=== PATIENT | female | born 1955 | race African-American/Black ===

== ENCOUNTER 2019-11-05 15:23 | Emergency (ER) | payer MEDICARE ==
[~2019-11-05] VITALS: Ht 175.3 cm; Wt 77.2 kg
[2019-11-05] MEDS ORDERED: KETOROLAC 15 MG/ML VIAL. IVP ONE (16:00)
[2019-11-05] MEDS ORDERED: hydrALAZINE 20 MG/ML VIAL. IVP ONE (16:00)
[2019-11-05] MEDS ORDERED: IV NORMAL SALINE 1000ML BAG 1,000 ML IV ONE (16:00)
[2019-11-05] MEDS ORDERED: cloNIDine HCL 0.1 MG TABLET PO ONE (16:00)
--- NOTE | 2019-11-05 16:00 | PHYS DOC ---
Past Medical History Past Medical History: Hypertension Past Surgical History Breast cancer Adult General Chief Complaint Chief Complaint: HEADACHE HPI HPI Patient is a 64 year old female who presents with complaint of a mild headache 1.5 weeks. Patient has history of hypertension but does not check her blood pressure regularly; she took her pressure today and it was 170s systolic. She denies chest pain or shortness of breath, numbness tingling or weakness. She takes a prescription of triamterene/hydrochlorothiazide. Has not seen her physician in 6 months. Review of Systems Review of Systems All other ROS is negative unless otherwise stated in HPI Current Medications Current Medications Current Medications Medications (Trade) Dose Ordered Sig/Gilda Start Time Stop Time Status Last Admin Dose Admin Clonidine HCl (Catapres) 0.1 mg 1X ONCE 11/05/19 16:00 11/05/19 16:01 DC 11/05/19 16:07 0.1 MG Hydralazine HCl (Apresoline Inj) 10 mg 1X ONCE 11/05/19 16:00 11/05/19 16:01 DC 11/05/19 16:07 10 MG Ketorolac Tromethamine (Toradol 15mg Vial) 15 mg 1X ONCE 11/05/19 16:00 11/05/19 16:01 DC Potassium Chloride (Klor-Con) 40 meq 1X ONCE 11/05/19 16:30 11/05/19 16:31 DC Sodium Chloride 1,000 ml @ 1,000 mls/hr 1X ONCE 11/05/19 16:00 11/05/19 16:59 11/05/19 16:08 1,000 MLS/HR Allergies Allergies Allergies Coded Allergies Type Severity Reaction Last Updated Verified iohexol Adverse Reaction Intermediate 11/05/19 Yes Physical Exam Physical Exam See above Constitutional: Well developed, well nourished, no acute distress, non-toxic appearance. [] HENT: Normocephalic, atraumatic, bilateral external ears normal, oropharynx moist, no oral exudates, nose normal. [] Eyes: PERRLA, EOMI, conjunctiva normal, no discharge. [] Neck: Normal range of motion, no tenderness, supple, no stridor. [] Cardiovascular:Heart rate regular rhythm, no murmur, no edema [] Lungs & Thorax: Bilateral breath sounds clear to auscultation [] Abdomen: Bowel sounds normal, soft, no tenderness, no masses, no pulsatile masses. [] Skin: Warm, dry, no erythema, no rash. [] Back: No tenderness, no CVA tenderness. [] Extremities: No tenderness, no cyanosis, no clubbing, ROM intact, no edema. [] Neurologic: Alert and oriented X 3, normal motor function, normal sensory function, no focal deficits noted. [] Psychologic: Affect normal, judgement normal, mood normal. [] Current Patient Data Vital Signs Vital Signs Date Time Temp Pulse Resp B/P (MAP) Pulse Ox O2 Delivery O2 Flow Rate FiO2 11/05/19 16:07 72 187/96 11/05/19 15:40 98.3 20 98 Room Air 98.3 Lab Values Laboratory Tests Test 11/05/19 15:50 White Blood Count 8.7 x10^3/uL (4.0-11.0) Red Blood Count 5.05 x10^6/uL (3.50-5.40) Hemoglobin 13.7 g/dL (12.0-15.5) Hematocrit 40.6 % (36.0-47.0) Mean Corpuscular Volume 80 fL (79-100) Mean Corpuscular Hemoglobin 27 pg (25-35) Mean Corpuscular Hemoglobin Concent 34 g/dL (31-37) Red Cell Distribution Width 13.4 % (11.5-14.5) Platelet Count 312 x10^3/uL (140-400) Neutrophils (%) (Auto) 63 % (31-73) Lymphocytes (%) (Auto) 28 % (24-48) Monocytes (%) (Auto) 7 % (0-9) Eosinophils (%) (Auto) 1 % (0-3) Basophils (%) (Auto) 1 % (0-3) Neutrophils # (Auto) 5.5 x10^3/uL (1.8-7.7) Lymphocytes # (Auto) 2.4 x10^3/uL (1.0-4.8) Monocytes # (Auto) 0.6 x10^3/uL (0.0-1.1) Eosinophils # (Auto) 0.1 x10^3/uL (0.0-0.7) Basophils # (Auto) 0.1 x10^3/uL (0.0-0.2) Sodium Level 143 mmol/L (136-145) Potassium Level 3.0 mmol/L (3.5-5.1) L Chloride Level 100 mmol/L (98-107) Carbon Dioxide Level 32 mmol/L (21-32) Anion Gap 11 (6-14) Blood Urea Nitrogen 15 mg/dL (7-20) Creatinine 1.0 mg/dL (0.6-1.0) Estimated GFR (Cockcroft-Gault) 67.3 Glucose Level 93 mg/dL (70-99) Calcium Level 10.5 mg/dL (8.5-10.1) H Troponin I Quantitative < 0.017 ng/mL (0.000-0.055) Laboratory Tests 11/05/19 15:50 Laboratory Tests 11/05/19 15:50 EKG EKG [] Radiology/Procedures Radiology/Procedures [] Impressions: Chest x-ray negative per emergency physician interpretation. Course & Med Decision Making Course & Med Decision Making 1557: Patient seen for ongoing headache temp 1.5 weeks with over the blood pressure in the ER. We'll check labs, give 1 L normal saline bolus and 10 mg of hydralazine IV and 0.1 mg of clonidine orally. If the patient's blood pressure improves and her labs are unremarkable and she is feeling better she will be discharged home and is to monitoring her blood pressure and will be instructed to follow-up next week with her primary care physician. She is also given Toradol for pain 1641: Patient's blood pressure is trending down, she is now 179/92. Her headache is gone. Her labs are unremarkable except for mild hypokalemia. She has been given 40 mEq of potassium orally in the ER. We'll wait on x-ray and if her blood pressure continues to attend down she will be discharged home and is instructed to monitor her blood pressure 3 times daily and follow-up next week. This was discussed with the patient and she voices understanding. Dragon Disclaimer Dragon Disclaimer This electronic medical record was generated, in whole or in part, using a voice recognition dictation system. Departure Departure Impression: Primary Impression: Hypokalemia Additional Impressions: Hypertension Headache Disposition: HOME, SELF-CARE Condition: IMPROVED Referrals: TATIANA HUNTER MD (PCP) Follow up in 3-7 days to recheck blood pressure Patient Instructions: Hypertension Additional Instructions: Check your blood pressure 3 times daily and keep a log for your doctor. Return for worsening symptoms. Problem Qualifiers JOVANY ROGERS DO Nov 05, 2019 16:00
[2019-11-05 16:01] LABS: BASO # 0.1 x10^3/uL (0.0-0.2); BASO % 1 % (0-3); EOS # 0.1 x10^3/uL (0.0-0.7); EOS % 1 % (0-3); HEMATOCRIT 40.6 % (36.0-47.0); HEMOGLOBIN 13.7 g/dL (12.0-15.5); LYMPH # 2.4 x10^3/uL (1.0-4.8); LYMPH % 28 % (24-48); MEAN CORPUSCULAR HEMOGLOBIN 27 pg (25-35); MEAN CORPUSCULAR HGB CONC 34 g/dL (31-37); MEAN CORPUSCULAR VOLUME 80 fL (79-100); MONO # 0.6 x10^3/uL (0.0-1.1); MONO % 7 % (0-9); NEUT # 5.5 x10^3/uL (1.8-7.7); NEUT % 63 % (31-73); PLATELET COUNT 312 x10^3/uL (140-400); RED BLOOD COUNT 5.05 x10^6/uL (3.50-5.40); RED CELL DISTRIBUTION WIDTH 13.4 % (11.5-14.5); WHITE BLOOD COUNT 8.7 x10^3/uL (4.0-11.0)
[2019-11-05 16:07] LABS: CALCIUM 10.5 mg/dL (8.5-10.1); GFR 67.3
[2019-11-05] MEDS ORDERED: POTASSIUM CHLORIDE 20 MEQ TABLET.ER. PO ONE (16:30)
--- NOTE | 2019-11-05 16:58 | RAD ---
EXAM: Chest, 2 views. HISTORY: Hypertension. COMPARISON: None. FINDINGS: 2 views of the chest are obtained. There is mild elevation of the right hemidiaphragm. There is no infiltrate, pleural effusion or pneumothorax. There are few metallic clips overlying the left thorax. IMPRESSION: No acute pulmonary finding. Electronically signed by: Jessica Pedersen MD (11/05/2019 4:55 PM) [facility] [place]
[2019-11-05] MEDS ORDERED: amLODIPine BESYLATE 5 MG TABLET PO ONE (17:00)
[2019-11-05 17:10] VITALS: BP 142/70
== END 2019-11-05 17:10 | disposition home or self-care (01) ==
LOC: ER 15:23
DX: E87.6 Hypokalemia (principal); R51 Headache; I10 Essential (primary) hypertension; Z91.041 Radiographic dye allergy status
CPT/HCPCS: 36415; 71046; 80048; 84484; 85025; 96374; 99285; J0360; J7030; 96361